=== PATIENT | female | born 1970 | race Hispanic/Latino ===

== ENCOUNTER 2020-11-27 10:56 | Outpatient (CLI) | payer OTHER | END 2020-11-27 10:57 | disposition home or self-care (01) | LOC: CSHMAMMO 10:56 | PROVIDERS: ATTEND Physician Assistant | DX: Z12.31 Encounter for screening mammogram for malignant neoplasm of breast (principal); N63.20 Unspecified lump in the left breast, unspecified quadrant | CPT/HCPCS: 77063; 77067 ==

== ENCOUNTER 2020-11-28 13:07 | Outpatient (CLI) | payer OTHER | END 2020-11-28 13:08 | disposition home or self-care (01) | LOC: CSHULT 13:07 | PROVIDERS: ATTEND Physician Assistant | DX: N63.20 Unspecified lump in the left breast, unspecified quadrant (principal) ==

== ENCOUNTER 2022-05-15 14:53 | Outpatient (CLI) | payer BC, OTHER | END 2022-05-15 14:54 | disposition home or self-care (01) | LOC: CSHMAMMO 14:53 | PROVIDERS: ATTEND Family Medicine Sports Medicine | DX: Z12.31 Encounter for screening mammogram for malignant neoplasm of breast (principal); Z80.3 Family history of malignant neoplasm of breast | CPT/HCPCS: 77063; 77067 ==

== ENCOUNTER 2023-09-02 10:08 | Emergency (ER) | payer BC, OTHER | END 2023-09-02 11:03 | disposition home or self-care (01) | LOC: CSHERS 10:08 | DX: S63.602A Unspecified sprain of left thumb, initial encounter (principal); X50.0XXA Overexertion from strenuous movement or load, initial encounter ==

== ENCOUNTER 2024-03-24 22:14 | Emergency (ER) | payer BC ==
[2024-03-24] MEDS ORDERED: Sulfameth/Trimethoprim DS 800-160mg TAB ONE (23:09)
[2024-03-24] MEDS ORDERED: Cephalexin 250 MG CAP ONE (23:10)
== END 2024-03-24 23:45 | disposition home or self-care (01) ==
LOC: CSHERS 22:14
DX: M79.644 Pain in right finger(s) (principal); F17.210 Nicotine dependence, cigarettes, uncomplicated

== ENCOUNTER 2025-05-16 11:53 | Outpatient (CLI) | payer BC | END 2025-05-16 11:54 | disposition home or self-care (01) | LOC: CSHMAMMO 11:53 | PROVIDERS: ATTEND Physician Assistant | DX: N63.25 Unspecified lump in the left breast, overlapping quadrants (principal) | CPT/HCPCS: G0279 ==

== ENCOUNTER 2025-06-02 10:17 | Outpatient (CLI) | payer BC | END 2025-06-02 10:18 | disposition home or self-care (01) | LOC: CSHMAMMO 10:17 | PROVIDERS: ATTEND Surgery | DX: C50.912 Malignant neoplasm of unspecified site of left female breast (principal) | CPT/HCPCS: A9697 ==